=== PATIENT | female | born 1930 | race Asian ===

== ENCOUNTER 2017-01-03 12:19 | Observation (INO) | payer MEDICARE ==
[~2017-01-03] VITALS: Ht 152.4 cm; Wt 63.1 kg
[2017-01-03] VITALS (7 sets, daily range): BP systolic 137–168; BP diastolic 29–68; PULSE 66–77; RESP 13–18; O2SAT 97–100
[~2017-01-03 12:19] MED LIST: ATOR80TA PO; CLOP75TA3 PO; FURO-129 PO; FeSO4 ORAL; ISOS120T6 PO; LOSA25TA21 PO; METO25TA6 PO; MULT1CAP33 PO; NITR0.4T6 SL; PANT40SU PO; POTA10CA42 PO; Vit D ORAL; vit E ORAL
[2017-01-03 14:20] LABS: BASOPHILS % (AUTO) 0.5 % (0-3); EOSINOPHILS % (AUTO) 3.3 % (0-5); MONOCYTES % (AUTO) 8.1 % (4-12); Mean Corpuscular Hemoglobin 30.7 pg (27.0-35.0); Mean Corpuscular Volume 93.5 fL (81-100); NEUTROPHILS % (AUTO) 69.1 % (40-74); Platelet Count 217 bil/L (150-400)
[2017-01-03 14:46] LABS: TROPONIN T < 0.010 ug/L (0.0-0.011)
--- NOTE | 2017-01-03 14:50 | DRSVH ---
PROCEDURE: X-RAY CHEST ONE VIEW, PORTABLE ([id number]) INDICATIONS: Chest pain TECHNIQUE: One view of the chest was acquired. COMPARISON: [facility], CR, XR CHEST 1VW (PORTABLE), 06/23/2016, 19:23. FINDINGS: Surgical changes and devices: Postoperative changes are present related to prior median sternotomy. Lungs and pleura: No pleural effusions or pneumothorax. Lungs are clear. The pulmonary vasculature is slightly prominent. Mediastinum: Mediastinal contours appear normal. Heart size is mildly enlarged. There is aortic at herosclerosis. Bones and chest wall: No suspicious bony lesions. Degenerative changes of the spine and shoulders a re present. Overlying soft tissues appear unremarkable. IMPRESSION: 1. Mild enlargement of the heart with associated vascular congestion. No overt heart failure. 2. No pneumonia. Dictated by: Rakesh Infante M.D. on 01/03/2017 at 13:40 Approved by: Rakesh Infante M.D. on 01/03/2017 at 13:49
[2017-01-03 14:51] LABS: Magnesium 2.1 mg/dL (1.6-2.6)
--- NOTE | 2017-01-03 14:53 | ED.REPORT ---
HPI-Chest Pain 40 and Over Date of Service Jan 03, 2017 ED Provider: Ryan Mcfarland MD 86 y/o female on Plavix with a hx of HTN, hyperlipidemia, CAD (s/p CABG) presents to the ED complaining of intermittent chest pain for over a week. She states the pain is mostly on the left side and lasts a few seconds. It worsens when she lies down. The pt uses Nitro but has not been noticing any change in her sx recently. Her son states he did not know about her condition until today when she was lightheaded and about to faint while making lunch. She denies losing consciousness. In the ED, she denies dizziness, lightheadedness and shortness of breath. The pt states her current sx are not as severe as the last time when she had an DE. Nursing Notes Stated Complaint: DIZZINESS/PASSING OUT Chief Complaint: Dysrhythmia/Cardiac Nursing Notes Reviewed: Yes Allergies: Coded Allergies: aspirin (Verified Allergy, Intermediate, BODY SWELLED UP., 01/03/17) [place] And Derivatives (Verified Allergy, Mild, Abdominal Pain, 09/20/12) Scheduled ([FeSO4]) 1 TABLET ORAL DAILY ([Vit D]) 2,000 MG ORAL DAILY ([vit E]) 1 TABLET ORAL DAILY Atorvastatin (Lipitor) 80 Mg Tablet 80 MG PO HS Clopidogrel Bisulfate (Plavix) 75 Mg Tablet 75 MG PO DAILY Furosemide (Lasix) 20 Mg Tablet 20 MG PO DAILY Isosorbide MN ER (Isosorbide MN ER) 120 Mg Tab.er.24h 120 MG PO DAILY Losartan Potassium (Losartan Potassium) 25 Mg Tablet 25 MG PO DAILY Metoprolol Tartrate (Metoprolol Tartrate) 25 Mg Tablet 25 MG PO BID Multivitamin (Multivitamins) 1 Each Capsule 1 EACH PO DAILY Pantoprazole Sodium (Protonix Granules) 40 Mg Granpkt.dr 40 MG PO DAILY Potassium Chloride (Potassium Chloride) 10 Meq Capsule.er 10 MEQ PO DAILY TAKE WITH FOOD Scheduled PRN Nitroglycerin SL (Nitroglycerin SL) 0.4 Mg Tab.subl 0.4 MG SL DIRECTED PRN PRN For Chest Pain General Time Seen by MD: 14:50 Chief Complaint Chest pain Hx Obtained From: Patient, Son Arrived By: Walk-in Sudden in Onset?: No Onset Occurred: 1 week ago Symptom Duration: Intermittent Location: : Chest left Quality: Painful Radiation: : Does not radiate Severity: Current: Moderate Severity: Maximum: Moderate Recent Healthcare: No recent doctor visit Similar Sx Previous: Yes Past Medical History Past Medical History 1. Diverticulitis. 2. Status post colon resection s/p colonoscopy being normal. 3. Hypertension. 4. Hyperlipidemia. 5. Coronary artery disease status post CABG x2-vessel in 2008. 6. Neuropathy. 7. Bilateral cataract 8. SBO 9. Paroxysmal atrial fibrillation Past Surgical History CABG x2 (2008) Failed cardiac stent placement (2011) Colon resection Family History Mother had a heart condition Smoking History Never Smoker Social History Other Social History: Good social support, , Local resident Ambulatory Status Independent Review of Systems Respiratory: Denies: Shortness of breath Cardiovascular: Reports: Chest pain Neurologic: Denies: Dizziness, Lightheaded Complete sys rev & neg: except as marked. Physical Exam Initial Vital Signs Vital Signs (First) Date Time Temp Pulse Resp B/P Pulse Ox O2 Delivery O2 Flow Rate FiO2 01/03/17 12:26 36.0 77 16 168/68 98 Room Air Initial VS: Reviewed Head / Eyes: Atraumatic, Normocephalic Neck: Supple, Non-tender, Full range of motion Extremities: Vascular intact, Neuro intact, No swelling, No tenderness Skin: Warm, Dry, No cyanosis Neurologic: Alert, Oriented, Nonfocal General/Constitutional: Awake, Alert, Cooperative Respiratory / Chest: Atraumatic, Breath sounds NL, Breath sounds = bilat, No respiratory distress, No rales, No rhonchi, No wheezing Cardiovascular: Heart rate NL, Regular rhythm, No gallop, No rubs Systolic murmur at the left border. Abdomen: Atraumatic, Soft, Non-tender, No guarding, No rebound Interpretation & Diagnostics Lab Results Interpretation Result Diagram: 01/03/17 1408 01/03/17 1408 Test 01/03/17 14:08 01/03/17 15:50 White Blood Count 5.7th/mm3 (3.8-10.1) Red Blood Count 3.84mil/mm3 (3.90-5.20) Hemoglobin 11.8g/dL (12.0-15.6) Hematocrit 35.9% (35.0-46.0) Mean Corpuscular Volume 93.5fL (81-100) Mean Corpuscular Hemoglobin 30.7pg (27.0-35.0) Mean Corpuscular Hemoglobin Concent 32.9% (32.0-37.0) Red Cell Distribution Width 13.4% (12.3-15.4) Platelet Count 217bil/L (150-400) Neutrophils (%) (Auto) 69.1% (40-74) Lymphocytes (%) (Auto) 19.0% (14-46) Monocytes (%) (Auto) 8.1% (4-12) Eosinophils (%) (Auto) 3.3% (0-5) Basophils (%) (Auto) 0.5% (0-3) Sodium Level 143mEq/L (134-144) Potassium Level 4.2mEq/L (3.5-5.2) Chloride Level 102mEq/L (97-108) Carbon Dioxide Level 27mmol/L (18-29) Blood Urea Nitrogen 22mg/dL (8-27) Creatinine 1.28mg/dL (0.57-1.00) Estimat Glomerular Filtration Rate 57mL/min (>59) Glucose Level 122mg/dL (60-99) Calcium Level 9.3mg/dL (8.5-10.1) Magnesium Level 2.1mg/dL (1.6-2.6) Total Bilirubin 0.4mg/dL (0.0-1.2) Aspartate Amino Transf (AST/SGOT) 24U/L (0-50) Alanine Aminotransferase (ALT/SGPT) 20U/L (0-32) Alkaline Phosphatase 115U/L (25-165) Total Protein 7.2g/dL (6.4-8.4) Albumin 4.2g/dL (3.4-5.0) Hold Xiong Top Tube Received (Received) Troponin T < 0.010ug/L (0.0-0.011) ECG Interpretation ECG Interpretation: Normal sinus rhtyhm. Rate 65. Time: 12:38 Interpreted by: ED physician X-Ray Chest Interpretation Chest Xray Interpretation: 1. Mild enlargement of the heart with associated vascular congestion. No overt heart failure. 2. No pneumonia. Dictated by: Rakesh Infante M.D. on 01/03/2017 at 13:40 Approved by: Rakesh Infante M.D. on 01/03/2017 at 13:49 View: Portable, 1 view Interpretation / Wet Read by: Interpret - Radiologist CT Head Interpretation IMPRESSION: 1. No acute intracranial findings. 2. White matter changes likely associated with chronic microvascular ischemia and old lacunar infarct. Dictated by: Lily Hernandez M.D. on 01/03/2017 at 15:55 Approved by: Lily Hernandez M.D. on 01/03/2017 at 15:58 Re-Eval/Medical Decision Med Decision/Clinical Course 86-year-old female history of CAD with CABG exam of left-sided chest pain for the past week and multiple near syncopal events. Troponins negative 2. No EKG changes. Orthostatics are negative. Diastolic blood pressures high 20s to low 40s. CT no acute pathology. Patient reported another near syncopal event while walking here. At times it is accompanied with chest pain. She does not feel comfortable going home. She will be admitted for chest pain and near syncopal event. Aspirin given. Time of Eval: 16:52 Re-Evaluation/Progress Note: Rechecked pt. Pt reports feeling lightheaded moments ago when she got up to go to the restroom. The pt states she wants to be admitted. Discussed lab results, imaging results, diagnosis and plan to admit. Pt understands and agrees with the plan for admission. All questions addressed. Consultation : Referral / Consult Name: Juan Parr MD Consulted With: Hospitalist Call Returned at: 18:02 Traveling Crane Operator: Will see patient, Agrees with eval, Agrees with plan, Accepts admit Counseled Regarding: Diagnosis, Lab results, Need for admission Discharge & Departure Primary Impression: Chest pain Additional Impression: Near syncope Disposition: ADMITTED TO HOSPITAL Discharge Condition All VS Reviewed: Yes Referrals: Michelle Carvajal MD (PCP) Scribe Attestation Portions of this note were transcribed by Briana Mcintyre. I, , personally performed the history, physical exam and medical decision- making;I reviewed and confirmed the accuracy of the information in the transcribed note. Signed by Carlos Hughes. 01/03/17 18:10 copies to: Michelle Carvajal MD, Ben M MD Jan 03, 2017 14:53 Briana Mcintyre Jan 03, 2017 15:16
--- NOTE | 2017-01-03 16:00 | DRSVH ---
PROCEDURE: CT BRAIN WITHOUT CONTRAST ([id number]) INDICATIONS: near syncope TECHNIQUE: Noncontrast 4.5 mm thick angled axial sections acquired from the foramen magnum to the vertex, with c oronal reformats. COMPARISON: None. FINDINGS: Image quality: Excellent. CSF spaces: Basal cisterns are patent. No extra-axial fluid collections. The ventricles are symmet romy in size and shape. Brain: No intracranial bleeds or masses. There is cerebral volume loss for age, with resultant vent ricular and sulcal prominence. There are moderate periventricular and deep white matter chronic smal l vessel ischemic changes. A small lacunar infarct is present within the right basal ganglia. There is intracranial internal carotid artery atherosclerosis. Skull and face: Calvarium and visualized facial bones appear intact, without suspicious lesions. Sinuses: Visualized sinuses and mastoids are clear. IMPRESSION: 1. No acute intracranial findings. 2. White matter changes likely associated with chronic microvascular ischemia and old lacunar infarct . Dictated by: Lily Hernandez M.D. on 01/03/2017 at 15:55 Approved by: Lily Hernandez M.D. on 01/03/2017 at 15:58
[2017-01-03] MEDS ORDERED: Ondansetron 2 mg/mL 2 mL Inj IVPUSH PRN ×2 (18:10→19:45)
[2017-01-03] MEDS ORDERED: Alum-Mag Hydrox-Simeth 30 mL Suspension PO PRN ×2 (18:10→19:45)
[2017-01-03] MEDS ORDERED: Polyethylene Glycol (PEG) 17 Gm Powder PO PRN (19:45)
[2017-01-03 21:22] LABS: APPEARANCE,URINE CLEAR (CLEAR,HAZY); COLOR,URINE YELLOW (YELLOW); OCCULT BLOOD,URINE NEGATIVE (NEGATIVE); PH,URINE 7.5 (5.0-8.0); UROBILINOGEN,URINE NORMAL (NORMAL)
--- NOTE | 2017-01-03 23:02 | PCM.HPMED ---
Subjective Date of Service Jan 03, 2017 Primary Provider: Admitting Physician: Juan Parr MD Primary Care Physician: Michelle Carvajal MD Attending Physician: Juan Parr MD Admit Status: From the Emergency Department Chief Complaint: Chest pain History of Present Illness: Patient is an 86-year-old female with past medical history remarkable for coronary artery disease post CABG, hypertension and hyperlipidemia who presents to [facility] ED complaining of intermittent chest pain for over 1 week. The pain is described as left sided and lasts for a few seconds. The patient states that it feels like her heart is pounding in her side her chest but denies skipped beats or fluttering sensation. The patient has attempted to take nitroglycerin for her pain however requires multiple doses and does not seem to improve noticeably immediately after initial administration. The patient states that she has become recently lightheaded upon standing more frequently and states that her urine is fairly dark in color. The patient states that she has not noticed the chest pain become worse with walking at the [facility] where she reportedly does 6 loops around the basketball court without issue. The patient denies any fever or chills, nausea or vomiting, cough or shortness of breath, swelling in her hands or feet or orthopnea. Review of Systems: A comprehensive review of systems was obtained and all were negative except for what is included in the history of present illness. Allergies Coded Allergies: aspirin (Verified Allergy, Intermediate, BODY SWELLED UP., 01/03/17) [place] And Derivatives (Verified Allergy, Mild, Abdominal Pain, 09/20/12) Home Medications Atorvastatin 80 MG PO HS Clopidogrel Bisulfate 75 MG PO DAILY Furosemide 20 MG PO DAILY Isosorbide MN ER 120 MG PO DAILY Losartan Potassium 25 MG PO DAILY Metoprolol Tartrate 25 MG PO BID Multivitamin 1 EACH PO DAILY Pantoprazole Sodium 40 MG PO DAILY Potassium Chloride 10 MEQ PO DAILY TAKE WITH FOOD Nitroglycerin SL (Nitroglycerin SL) 0.4 Mg Tab.subl 0.4 MG SL DIRECTED PRN PRN For Chest Pain Iron 1 TABLET ORAL DAILY Vitamin D 2,000 MG ORAL DAILY Vitamin E 1 TABLET ORAL DAILY PMH Diverticulitis. Status post partial colectomy s/p colonoscopy being normal. Hypertension. Hyperlipidemia. Coronary artery disease status post CABG x2-vessel in 2008 and [place] genic dissection of the BANUELOS 12/2011 Neuropathy Bilateral cataract post cataract extraction History of a small bowel obstruction requiring lysis of adhesions in November 2015 Paroxysmal atrial fibrillation Tricuspid regurgitation, Mitral regurgitation and Aortic regurgitation History of tuberculosis treated with INH in 1959 History of hepatitis A in the Chronic normocytic anemia (patient reports that she is on iron replacement) Pulmonary hypertension GERD Surgical History CABG x2 (2008) Failed cardiac stent placement to [place] (2011) Partial colectomy in 2001 Lysis of adhesions for SBO in 2015 Report of Cholecystectomy, however the patient currently denies Stent to left ureter Bilateral cataract surgery Family History Mother had a heart condition, renal failure and diabetes Father in 1932, typhoid epidemic Patient's adult children all reportedly healthy Social History Occupation: retired Hx Alcohol Use: No Hx Substance Use: No Hx Tobacco Use: No Smoking Status: Never Smoker Living Arrangement: Alone Exam Vital Signs Vital Sign - Last Date Time Temp Pulse Resp B/P Pulse Ox O2 Delivery O2 Flow Rate FiO2 01/03/17 19:26 36.6 71 18 162/62 99 Room Air Exam General: well-nourished elderly female appearing approximately stated age, alert and cooperative in no acute distress Eyes: Pupils equal round react to light, extraocular motion intact, anicteric sclera, noninjected conjunctiva HENT: Normocephalic, atraumatic. Moist mucous membranes without central cyanosis oropharynx clear without cobblestoning mucosa Neck: supple with full range of motion. No Thyromegaly or JVD noted Cardiovascular: Regular rate and rhythm, 2/6 diastolic murmur present at right upper sternal border, without rubs or gallops noted Chest & Lungs: Mild coarse breath sounds noted in right lower lung field clear to auscultation in all other lung nuñez, without wheezing noted and normal respiratory effort Abdomen: Non-tender, Non-distended, No masses, Normoactive bowel tones, Soft. Vertical surgical scar noted Musculoskeletal: Normal Range of Motion Extremities: No cyanosis, clubbing, or edema noted, pulses intact bilaterally at radial and dorsalis pedis Neurological: Alert, oriented 3, nonfocal neurologic assessment patient is able to move all extremities spontaneously Psych: Normal mood and affect. Lab and Diagnostics Result Diagram: 01/03/17 1408 01/03/17 1408 X-Rays, CTs and MRIs CT BRAIN WITHOUT CONTRAST ([id number]) IMPRESSION: 1. No acute intracranial findings. 2. White matter changes likely associated with chronic microvascular ischemia and old lacunar infarct. Dictated by: Lily Hernandez M.D. on 01/03/2017 at 15:55 Approved by: Lily Hernandez M.D. on 01/03/2017 at 15:58 X-RAY CHEST ONE VIEW, PORTABLE ([id number]) IMPRESSION: 1. Mild enlargement of the heart with associated vascular congestion. No overt heart failure. 2. No pneumonia. Dictated by: Rakesh Infante M.D. on 01/03/2017 at 13:40 Approved by: Rakesh Infante M.D. on 01/03/2017 at 13:49 Cardiac Echo Impressions Previously performed Echocardiogram Report in July 2016 Interpretation Summary The left ventricle is normal in size, wall thickness, and systolic function without any focal wall motion abnormalities with the ejection fraction visually estimated to be 60-65%, and appears unchanged in size and function compared to the previous study. The E/A ratio is reversed, suggesting impaired early relaxation of the left ventricle or a reduced preload state, possibly lower compared to the previous study. The right ventricle is normal size and right ventricular systolic function is at the lower limits of normal. The right ventricle appears smaller and slightly less dynamic compared to the previous study. The right ventricular systolic pressure is estimated at 33 mmHg assuming a right atrial pressure of 8 mm Hg, and is likely significantly lower compared to the previous study. The IVC is small at 1.3 cm suggesting low normal CVP. The left atrium is mildly dilated and the right atrium is normal in size. The right atrium has significantly decreased in size since the prior echo exam. There is mild mitral regurgitation that is unchanged compared to the previous study, and mild tricuspid regurgitation that is significantly improved compared to the previous study. There is moderate aortic regurgitation with borderline holodiastolic flow reversal in the descending thoracic aorta, and is slightly less prominent compared to the previous study. Reading Physician:05:50 PM Assessment & Plan Patient is an 86-year-old female with past medical history remarkable for coronary artery disease post CABG, hypertension and hyperlipidemia who presents to [facility] ED complaining of intermittent chest pain for over 1 week. # Atypical chest pain with pre syncope - Records indicate the patient was seen for a similar weeklong episode of chest pain which was also atypical in nature with intermittent bouts of brief left- sided chest pain not made worse with exertion and possibly improving with nitroglycerin as well as negative changes on stress test the following day make this atypical chest pain likely benign in nature, however the presentation and persistence over the last week might also suggest unstable angina given the patient's coronary artery disease history. - Certainly could be some contribution from her GERD - Admitted to observation for trending tropponin for further cardiac evaluation given her intermediate risk - Unremarkable ECG with 3 negative troponin - The patient has adamantly refused a possible stress test in the AM - Monitor for new chest pain overnight-and will address with repeat EKG, medications if needed, etc. - Differential includes PUD, panic attack, esophageal spasm - Stress test will be ordered # Mild Acute kidney injury - Creatinine today is 1.28 this mildly elevated above a baseline near 1 - Likely due to prerenal azotemia the patient was negative for orthostatic hypotension - The patient when presented with the option for having an IV with IV fluids started versus initiation of oral intake chose to try oral intake - Monitor with repeat BMP # Hyperglycemia without diagnosis of diabetes - Review of outpatient laboratory value shows fasting blood glucose less than 100 routinely. - Likely elevated due to time of day following meal. - Do not appreciate any need to repeat an A1c (most recent on record is 2008 5.7 %) # Chronic coronary artery disease - continue Plavix 75 mg daily - Continue home statin therapy atorvastatin 80 mg at night # Chronic hypertension - Continue home isosorbide mononitrate 120 mg daily - Continue home metoprolol tartrate 25 mg twice a day - Currently holding home losartan given ASHLYN # Chronic Multivalvular heart disease - Tricuspid regurgitation, Mitral regurgitation and Aortic regurgitation - Patient lacks signs of fluid overload from right sided valve failure - monitor # Chronic normocytic anemia - patient reports that she is on iron replacement - No signs of overt blood loss - Anemia panel ordered - Monitor # Chronic gastroesophageal reflux disease - Maalox plus available overnight # Chronic Pulmonary hypertension - Records indicate 12/07/15 showed an RSVP of 50 with normal RV size and function - No signs of respiratory failure at this time - Monitor DVT prophylaxis: Heparin 5000 units 3 times a day GI prophylaxis: Not indicated at this time CODE STATUS DNR/DNI Patient is admitted under observation status with expected length of stay less than 2 midnights due to severity of presenting symptoms, risk of adverse event, and complexity of treatment plan. Pain Evaluation: Adequate Pain Control GI Prophylaxis: Not indicated VTE Prophylaxis Indicated: Meets Criteria for Anticoag Therapy VTE Prophylaxis: Sub-Q Heparin (Unfractionated) Resuscitation Status: DNR/DNI:Do Not Resuscitate/Intubate Attending Statement The patient was seen and examined together with Dr. Galvez on 01/03 and I agree with the history, exam and plan as outlined in the note above. Suresh Demarco DO Jan 03, 2017 23:02 Michael Gallagher MD Jan 04, 2017 05:52
[2017-01-04] VITALS (7 sets, daily range): BP systolic 143–168; BP diastolic 65–76; PULSE 65–70; RESP 16–19; O2SAT 96–98
[2017-01-04] MEDS: Heparin 5,000 Unit/mL Inj SUBQ SCH ×2 (00:51→08:34)
--- NOTE | 2017-01-04 03:31 | NUR ---
Admit Pt arrived on unit at 1954 via business initiatives manager by Austyn Bush. Pt ambulated to bedside. VSS except for elevated BP. Pt states she has zero pain.
[2017-01-04 06:51] LABS: Mean Corpuscular Hemoglobin 29.8 pg (27.0-35.0); Mean Corpuscular Volume 93.1 fL (81-100)
[2017-01-04 07:46] LABS: Magnesium 2.1 mg/dL (1.6-2.6); Phosphorus 3.9 mg/dL (2.5-4.9)
[2017-01-04 08:12] LABS: Unsaturated Iron Binding 164.5 ug/dL
[2017-01-04] MEDS ORDERED: Isosorbide Mononitrate 60 mg ER24 Tablet PO SCH (08:30)
--- NOTE | 2017-01-04 12:06 | NUR ---
Case Management: BATRES and part D info explained to pt at bedside at 11:00. No questions other than if she can go home today. Signed original BATRES placed on chart, provided copy to pt. ADRIANA Kerns RN
--- NOTE | 2017-01-04 12:18 | PCM.DIMED ---
Discharge Instructions Date of Service Jan 04, 2017 Dates of Hospitalization Jan 03, 2017 at 18:15 Discharge Diagnosis Discharge Diagnosis # Atypical chest pain, resolved. Patient declined stress test # Mild Acute kidney injury, resolved # Chronic coronary artery disease # Chronic hypertension # Chronic Multivalvular heart disease # Chronic normocytic anemia # Chronic gastroesophageal reflux disease # Chronic Pulmonary hypertension Diet Discharge Diet: Low fat, Low Sodium, Heart Healthy Activity Discharge Activity: Limited until seen by PCP Call your provider Call your provider for: Fever or Chills, Shortness of breath, Bleeding, Chest pain, Vomitting, Excessive diarrhea, Weakness (unilateral) Patient Instructions Patient Instructions You were hospitalized due to chest pain. Chest pain resolved.You declined stress test or any other test given chest pain resolved. Please continue all home medications as prescribed. Please follow-up with PCP for outpatient stress test if chest pain recurs. Follow-up Provider: Michelle Carvajal MD Follow-up with PCP in: 1 week Juan Parr MD Jan 04, 2017 12:18
--- NOTE | 2017-01-04 12:52 | PCM.DC.MED ---
Discharge Summary Date of Service Jan 04, 2017 Dates of Hospitalization Date of Hospital Admission Jan 03, 2017 at 18:15 Date of Discharge: Jan 04, 2017 Providers: Admitting Physician: Juan Parr MD Primary Care Physician: Michelle Carvajal MD Attending Physician: Juan Parr MD Diagnosis at Time of Discharge Diagnosis at Time of Discharge # Atypical chest pain, resolved. Patient declined stress test # Mild Acute kidney injury, resolved # Chronic coronary artery disease # Chronic hypertension # Chronic Multivalvular heart disease # Chronic normocytic anemia # Chronic gastroesophageal reflux disease # Chronic Pulmonary hypertension Consultations none Procedures XRay, CTs & MRIs CT BRAIN WITHOUT CONTRAST ([id number]) IMPRESSION: 1. No acute intracranial findings. 2. White matter changes likely associated with chronic microvascular ischemia and old lacunar infarct. Dictated by: Lily Hernandez M.D. on 01/03/2017 at 15:55 Approved by: Lily Hernandez M.D. on 01/03/2017 at 15:58 X-RAY CHEST ONE VIEW, PORTABLE ([id number]) IMPRESSION: 1. Mild enlargement of the heart with associated vascular congestion. No overt heart failure. 2. No pneumonia. Dictated by: Rakesh Infante M.D. on 01/03/2017 at 13:40 Approved by: Rakesh Infante M.D. on 01/03/2017 at 13:49 Cardiac Echo Impression Previously performed Echocardiogram Report in July 2016 Interpretation Summary The left ventricle is normal in size, wall thickness, and systolic function without any focal wall motion abnormalities with the ejection fraction visually estimated to be 60-65%, and appears unchanged in size and function compared to the previous study. The E/A ratio is reversed, suggesting impaired early relaxation of the left ventricle or a reduced preload state, possibly lower compared to the previous study. The right ventricle is normal size and right ventricular systolic function is at the lower limits of normal. The right ventricle appears smaller and slightly less dynamic compared to the previous study. The right ventricular systolic pressure is estimated at 33 mmHg assuming a right atrial pressure of 8 mm Hg, and is likely significantly lower compared to the previous study. The IVC is small at 1.3 cm suggesting low normal CVP. The left atrium is mildly dilated and the right atrium is normal in size. The right atrium has significantly decreased in size since the prior echo exam. There is mild mitral regurgitation that is unchanged compared to the previous study, and mild tricuspid regurgitation that is significantly improved compared to the previous study. There is moderate aortic regurgitation with borderline holodiastolic flow reversal in the descending thoracic aorta, and is slightly less prominent compared to the previous study. Reading Physician:05:50 PM Brief History per HPI Patient is an 86-year-old female with past medical history remarkable for coronary artery disease post CABG, hypertension and hyperlipidemia who presents to [facility] ED complaining of intermittent chest pain for over 1 week. The pain is described as left sided and lasts for a few seconds. The patient states that it feels like her heart is pounding in her side her chest but denies skipped beats or fluttering sensation. The patient has attempted to take nitroglycerin for her pain however requires multiple doses and does not seem to improve noticeably immediately after initial administration. The patient states that she has become recently lightheaded upon standing more frequently and states that her urine is fairly dark in color. The patient states that she has not noticed the chest pain become worse with walking at the [facility] where she reportedly does 6 loops around the basketball court without issue. The patient denies any fever or chills, nausea or vomiting, cough or shortness of breath, swelling in her hands or feet or orthopnea. Hospital Course Patient is an 86-year-old female with past medical history remarkable for coronary artery disease post CABG, hypertension and hyperlipidemia who presents to [facility] ED complaining of intermittent chest pain for over 1 week. # Atypical chest pain with pre syncope, resolved - Records indicate the patient was seen for a similar weeklong episode of chest pain which was also atypical in nature with intermittent bouts of brief left- sided chest pain not made worse with exertion and possibly improving with nitroglycerin as well as negative changes on stress test the following day make this atypical chest pain likely benign in nature, however the presentation and persistence over the last week might also suggest unstable angina given the patient's coronary artery disease history. - Certainly could be some contribution from her GERD - Unremarkable ECG with 3 negative troponin - The patient has adamantly refused stress test . She states pain has resolved and she does not need any further test # Mild Acute kidney injury, resolved - Creatinine today is 1.28 this mildly elevated above a baseline near 1 - Likely due to prerenal azotemia the patient was negative for orthostatic hypotension # Hyperglycemia without diagnosis of diabetes - Review of outpatient laboratory value shows fasting blood glucose less than 100 routinely. - Likely elevated due to time of day following meal. - Do not appreciate any need to repeat an A1c (most recent on record is 2008 5.7 %) # Chronic coronary artery disease - continue Plavix 75 mg daily - Continue home statin therapy atorvastatin 80 mg at night # Chronic hypertension - Continue home isosorbide mononitrate 120 mg daily - Continue home metoprolol tartrate 25 mg twice a day # Chronic Multivalvular heart disease - Tricuspid regurgitation, Mitral regurgitation and Aortic regurgitation - Patient lacks signs of fluid overload from right sided valve failure # Chronic normocytic anemia - patient reports that she is on iron replacement - No signs of overt blood loss # Chronic gastroesophageal reflux disease - Maalox plus available overnight # Chronic Pulmonary hypertension - Records indicate 12/07/15 showed an RSVP of 50 with normal RV size and function - No signs of respiratory failure at this time Discharge to home Condition on discharge stable Exam Vital Signs (Last) Date Time Temp Pulse Resp B/P Pulse Ox O2 Delivery O2 Flow Rate FiO2 01/04/17 09:10 36.8 65 18 146/73 98 01/04/17 03:41 Room Air Exam General: well-nourished elderly female appearing approximately stated age, alert and cooperative in no acute distress Eyes: Pupils equal round react to light, extraocular motion intact, anicteric sclera, noninjected conjunctiva HENT: Normocephalic, atraumatic. Moist mucous membranes without central cyanosis oropharynx clear without cobblestoning mucosa Neck: supple with full range of motion. No Thyromegaly or JVD noted Cardiovascular: Regular rate and rhythm, 2/6 diastolic murmur present at right upper sternal border, without rubs or gallops noted Chest & Lungs: Mild coarse breath sounds noted in right lower lung field clear to auscultation in all other lung nuñez, without wheezing noted and normal respiratory effort Abdomen: Non-tender, Non-distended, No masses, Normoactive bowel tones, Soft. Vertical surgical scar noted Musculoskeletal: Normal Range of Motion Extremities: No cyanosis, clubbing, or edema noted, pulses intact bilaterally at radial and dorsalis pedis Neurological: Alert, oriented 3, nonfocal neurologic assessment patient is able to move all extremities spontaneously Psych: Normal mood and affect. Test 01/03/17 14:08 01/03/17 18:06 01/03/17 23:15 01/04/17 06:25 Neutrophils (%) (Auto) 69.1% (40-74) Lymphocytes (%) (Auto) 19.0% (14-46) Monocytes (%) (Auto) 8.1% (4-12) Eosinophils (%) (Auto) 3.3% (0-5) Basophils (%) (Auto) 0.5% (0-3) Hold Xiong Top Tube Received (Received) Urine Color Yellow (YELLOW) Urine Appearance Clear (CLEAR,HAZY) Urine pH 7.5 (5.0-8.0) Urine Specific [place] 1.010 (1.003-1.035) Urine Protein Negativemg/dL (NEG,TRACE) Urine Glucose (UA) Negativemg/dL (NEGATIVE) Urine Ketones Negativemg/dL (NEGATIVE) Urine Occult Blood Negative (NEGATIVE) Urine Nitrite Negative (NEGATIVE) Urine Bilirubin Negative (NEGATIVE) Urine Urobilinogen Normalmg/dL (NORMAL) Urine Leukocyte Esterase Trace (NEGATIVE) Urine RBC 0-2/hpf (0-2) Urine WBC 0-5/hpf (0-5) Urine Epithelial Cells Few/hpf (NONE-MOD) Urine Crystals None seen (NONE SEEN) Urine Bacteria Few/hpf (NONE-FEW) Urine Hyaline Casts None/lpf (NONE) Urine Granular Casts None seen (NONE SEEN) Urine Waxy Casts None seen (NONE SEEN) Urine Red Blood Cell Casts None seen (NONE SEEN) Urine White Blood Cell Casts None seen (NONE SEEN) Urine Mucus None seen (None Seen) Urine Trichomonas None seen (NONE SEEN) Urine Yeast None (NONE SEEN) Urinalysis Comment None Urine Culture Reflexed Indicated Troponin T < 0.010ug/L (0.0-0.011) White Blood Count 5.6th/mm3 (3.8-10.1) Red Blood Count 3.62mil/mm3 (3.90-5.20) Hemoglobin 10.8g/dL (12.0-15.6) Hematocrit 33.7% (35.0-46.0) Mean Corpuscular Volume 93.1fL (81-100) Mean Corpuscular Hemoglobin 29.8pg (27.0-35.0) Mean Corpuscular Hemoglobin Concent 32.0% (32.0-37.0) Red Cell Distribution Width 13.3% (12.3-15.4) Platelet Count 188bil/L (150-400) Sodium Level 144mEq/L (134-144) Potassium Level 4.4mEq/L (3.5-5.2) Chloride Level 106mEq/L (97-108) Carbon Dioxide Level 24mmol/L (18-29) Blood Urea Nitrogen 25mg/dL (8-27) Creatinine 0.98mg/dL (0.57-1.00) Estimat Glomerular Filtration Rate 77mL/min (>59) Glucose Level 91mg/dL (60-99) Calcium Level 9.1mg/dL (8.5-10.1) Phosphorus Level 3.9mg/dL (2.5-4.9) Magnesium Level 2.1mg/dL (1.6-2.6) Iron Level 63ug/dL (35-150) Total Iron Binding Capacity 228ug/dL (250-450) Percent Iron Saturation 28%sat (15-50) Unsaturated Iron Binding 164.5ug/dL Ferritin 146ng/mL (13-150) Total Bilirubin 0.5mg/dL (0.0-1.2) Aspartate Amino Transf (AST/SGOT) 19U/L (0-50) Alanine Aminotransferase (ALT/SGPT) 16U/L (0-32) Alkaline Phosphatase 87U/L (25-165) Total Protein 6.1g/dL (6.4-8.4) Albumin 3.8g/dL (3.4-5.0) Thyroid Stimulating Hormone (TSH) 4.940uIU/mL (0.450-4.500) Free Thyroxine 1.70ng/dL (0.82-1.77) Discharge Medications Discharge Medications ([FeSO4]) 1 TABLET ORAL DAILY (Reported) ([Vit D]) 2,000 MG ORAL DAILY (Reported) Atorvastatin (Lipitor) 80 Mg Tablet 80 MG PO HS (Reported) Clopidogrel Bisulfate (Plavix) 75 Mg Tablet 75 MG PO DAILY (Reported) Furosemide (Lasix) 20 Mg Tablet 20 MG PO DAILY (Reported) Isosorbide MN ER (Isosorbide MN ER) 120 Mg Tab.er.24h 120 MG PO DAILY (Reported ) Losartan Potassium (Losartan Potassium) 25 Mg Tablet 25 MG PO DAILY (Reported) Metoprolol Tartrate (Metoprolol Tartrate) 25 Mg Tablet 25 MG PO BID (Reported) Multivitamin (Multivitamins) 1 Each Capsule 1 EACH PO DAILY (Reported) Potassium Chloride (Potassium Chloride) 10 Meq Capsule.er 10 MEQ PO DAILY ( Reported) TAKE WITH FOOD As needed Nitroglycerin SL (Nitroglycerin SL) 0.4 Mg Tab.subl 0.4 MG SL DIRECTED PRN PRN For Chest Pain Prescribed by: NARESH MIRANDA DO Followup Plan Disposition: Home Discharge Diet: Low fat, Low Sodium, Heart Healthy Discharge Activity: Limited until seen by PCP Patient Instructions You were hospitalized due to chest pain. Chest pain resolved.You declined stress test or any other test given chest pain resolved. Please continue all home medications as prescribed. Please follow-up with PCP for outpatient stress test if chest pain recurs. Follow-up Provider: Michelle Carvajal MD Follow-up with PCP in: 1 week copies to: Michelle Carvajal MD, Melaku MD Jan 04, 2017 12:52
--- NOTE | 2017-01-04 13:35 | NUR ---
Discharge Pt was eager for d/c, refused stress test this am, and per moshe rn pt had refused IV placement and IVF. Pt did not have returning CP and tele was normal over the night. Pt d/c at 1325 w/ son via wc. No new orders at this time, f/u w/ pcp made and pt is comfortable w/ plan. Addendum: 01/04/17 at 1338 by SIMEON LUCAS RN Pt received and verified home meds returned from pharmacy
--- NOTE | 2017-01-04 13:53 | NUR ---
Social Work- Initial Assessment/Discharge (Late Note) Data: See Initial Assessment. Pt is a 86 year old female admitted 01/03/17 for chest pain, near syncope. SW met with pt at bedside, earlier today prior to discharge, SW role explained. Pt's insurance is [employer] and [employer]. Pt's PCP is Michelle Carvajal MD. Pt's NOK is son Phil Young [phone]. Pt was observed standing independently during this conversation. Pt resides in [place] in a single story home where she is independent at baseline. Pt uses no DME but she has a cane and walker available to her. Pt has no LTC, HH, SNF, or VA benefits. Pt reports she has a completed Living Will. Pt declined any discharge needs. Pt's son picked her up from the hospital at discharge. No discharge needs identified. Assessment: Pt who is independent at baseline. Plan:Pt declined any discharge needs. Pt's son picked her up from the hospital at discharge. No discharge needs identified. SHERRIE Martines Addendum: 01/04/17 at 1356 by NAMITA VELASCO SS Amended: Links added.
== END 2017-01-04 13:25 | disposition home or self-care (01) ==
LOC: SED 12:19 → MOC 18:15
PROVIDERS: ADMIT Internal Medicine; ATTEND Internal Medicine
DX: R07.89 Other chest pain (principal); N17.9 Acute kidney failure, unspecified; I25.10 Atherosclerotic heart disease of native coronary artery without angina pectoris; I10 Essential (primary) hypertension; I34.0 Nonrheumatic mitral (valve) insufficiency; I07.1 Rheumatic tricuspid insufficiency; I35.1 Nonrheumatic aortic (valve) insufficiency; D64.9 Anemia, unspecified; K21.9 Gastro-esophageal reflux disease without esophagitis; I27.2 Other secondary pulmonary hypertension; R55 Syncope and collapse; R73.9 Hyperglycemia, unspecified; I48.0 Paroxysmal atrial fibrillation; E78.5 Hyperlipidemia, unspecified; K57.30 Diverticulosis of large intestine without perforation or abscess without bleeding; K56.60 Unspecified intestinal obstruction; G62.9 Polyneuropathy, unspecified; Z95.1 Presence of aortocoronary bypass graft; Z88.8 Allergy status to other drugs, medicaments and biological substances; Z79.02 Long term (current) use of antithrombotics/antiplatelets; Z86.11 Personal history of tuberculosis
CPT/HCPCS: 36415; 70450; 71010; 80053; 81000; 82728; 83540; 83550; 83735; 84100; 84439; 84443; 84484; 85025; 85027; 87086; 87088; 93005; 99285; J1644